=== PATIENT | female | born 2000 | race Hispanic/Latino ===

== ENCOUNTER 2019-05-24 13:04 | Emergency (ER) | payer OTHER, SELFPAY ==
[2019-05-24] MEDS ORDERED: BUPIVACAINE 0.5% PF 10 ML VIAL ONE (13:46)
[2019-05-24] MEDS ORDERED: LIDOCAINE 1% MPF 30 ML VIAL ONE (13:47)
--- NOTE | 2019-05-24 14:26 | ER ---
Nurse's Notes [facility] Name: May Rodas Age: 18 yrs Sex: Female : 2000 Arrival Date: 05/24/2019 Time: 13:06 Bed 15 Private MD: Diagnosis: Pilonidal cyst and sinus with abscess Presentation: 05/24 13:17 Presenting complaint: Patient states: "I have a boil on my butt and it hurts". aa5 Transition of care: patient was not received from another setting of care. Onset of symptoms was April 2019. Risk Assessment: Do you want to hurt yourself or someone else? Patient reports no desire to harm self or others. Initial Sepsis Screen: Does the patient meet any 2 criteria? No. Patient's initial sepsis screen is negative. Does the patient have a suspected source of infection? No. Patient's initial sepsis screen is negative. Care prior to arrival: None. 13:17 Acuity: MANSI 4 aa5 13:17 Method Of Arrival: Ambulatory aa5 Triage Assessment: 13:27 General: Appears Behavior is calm, cooperative, appropriate for age. Pain: Complains of tw2 pain in buttocks. 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 - Social history:: Smoking status: Patient/guardian denies using tobacco. - Ebola Screening: : No symptoms or risks identified at this time. Screenin:27 Abuse screen: Denies threats or abuse. Nutritional screening: No deficits noted. tw2 Tuberculosis screening: No symptoms or risk factors identified. Fall Risk None identified. Assessment: 13:25 General: Appears in no apparent distress. slender, well groomed, Behavior is calm, tw2 cooperative, appropriate for age. Pain: Complains of pain in gluteal cleft. Neuro: Level of Consciousness is awake, alert, obeys commands, Oriented to person, place, time, situation. Cardiovascular: Patient's skin is warm and dry. Respiratory: Airway is patent Respiratory effort is even, unlabored, Respiratory pattern is regular, symmetrical. GI: No signs and/or symptoms were reported involving the gastrointestinal system. : No signs and/or symptoms were reported regarding the genitourinary system. EENT: No signs and/or symptoms were reported regarding the EENT system. Derm: Abscess located on buttocks. 14:28 Reassessment: Patient appears in no apparent distress at this time. Patient and/or tw2 family updated on plan of care and expected duration. Pain level reassessed. Patient is alert, oriented x 3, equal unlabored respirations, skin warm/dry/pink. Patient states feeling better. Vital Signs: 13:18 BP 148 / 59; Pulse 108; Resp 18 S; Temp 99.4(O); Pulse Ox 100% on R/A; Weight 61.23 kg aa5 (R); Height 5 ft. 1 in. (154.94 cm) (R); Pain 9/10; 13:18 Body Mass Index 25.51 (61.23 kg, 154.94 cm) aa5 ED Course: 13:06 Patient arrived in ED. rg4 13:17 Triage completed. aa5 13:17 Arm band placed on. aa5 13:26 Veronica Carranza, RN is Primary Nurse. tw2 13:26 Chilo Veloz PA is PHCP. [facility] 13:26 Tanner Kaiser MD is Attending Physician. [facility] 13:26 Placed in gown. Bed in low position. Adult w/ patient. tw2 14:23 Assist provider with I \\T\\ D: of an abscess on pilonidal cyst Set up I\\T\\D tray. Performed tw 2 by Chilo LINDO Wound packed. Dressing with 4X4s, tape Patient tolerated well. 14:25 Ken Blancas MD is Referral Physician. [facility] 14:37 Patient did not have IV access during this emergency room visit. tw2 Administered Medications: 13:50 Drug: Marcaine (0.5 %) 10 ml {Note: by PA. Marco} Volume: 10 ml; Route: tw2 Infiltration; 13:50 Drug: Lidocaine (1 %) 5 ml {Note: by provider PA. Marco} Volume: 5 ml; Route: tw2 Infiltration; Outcome: 14:25 Discharge ordered by . [facility] 14:36 Discharged to home ambulatory, with family. tw2 14:36 Condition: stable 14:36 Discharge instructions given to patient, family, Instructed on discharge instructions, follow up and referral plans. no drinking with medication, no driving heavy equipment, medication usage, wound care, Demonstrated understanding of instructions, follow-up care, medications, wound care, Prescriptions given X 2. 14:47 Patient left the ED. tw2 Signatures: Chilo Veloz PA PA jmm Calderon, Audri, RN RN aa5 Veronica Carranza RN RN tw2 Marlene Johnson 4
--- NOTE | 2019-05-24 14:27 | EDPHYS ---
Physician Documentation [facility] Name: May Rodas Age: 18 yrs Sex: Female : 2000 Arrival Date: 05/24/2019 Time: 13:06 Bed 15 Private MD: ED Physician Tanner Kaiser HPI: 05/24 13:39 This 18 yrs old Female presents to ER via Ambulatory with complaints of Boil, jmm Fever. 13:39 The patient presents with an abscess of the gluteal cleft. Onset: The symptoms/episode jmm began/occurred gradually, 1 week(s) ago. Possible cause(s): unknown. Associated signs and symptoms: Pertinent positives: fever, swelling. This is a 18 year old female with no chronic medical conditions that presents to the ED with complaints of buttock pain, fever, worsening last night. . [employer]: 13:18 LMP 05/21/2019 aa5 Historical: - Allergies: 13:17 No Known Allergies; aa5 - PMHx: 13:17 None; aa5 - PSHx: 13:17 None; aa5 - Immunization history:: Last tetanus immunization: unknown. - Social history:: Smoking status: Patient/guardian denies using tobacco. - Ebola Screening: : No symptoms or risks identified at this time. ROS: 13:39 Respiratory: Negative for shortness of breath, cough, wheezing, and pleuritic chest jmm pain, Abdomen/GI: Negative for abdominal pain, nausea, vomiting, diarrhea, and constipation. 13:39 Constitutional: Positive for fever. 13:39 Skin: Positive for swelling. 13:39 All other systems are negative. Exam: 13:39 Constitutional: This is a well developed, well nourished patient who is awake, alert, jmm and in no acute distress. Head/Face: atraumatic. Eyes: EOMI, no conjunctival erythema appreciated ENT: Moist Mucus Membranes Neck: Trachea midline, Supple Chest/axilla: Normal chest wall appearance and motion. Cardiovascular: Regular rate and rhythm. No edema appreciated Respiratory: Normal respirations, no respiratory distress appreciated Abdomen/GI: Non distended, soft Back: Normal ROM 13:39 Skin: swelling and induration noted to the superior gluteal cleft, more induration is appreciated on the left side. 13:39 Neuro: Orientation: is normal, Mentation: is normal, Memory: is normal. 13:39 Psych: Behavior/mood is pleasant, cooperative. Vital Signs: 13:18 BP 148 / 59; Pulse 108; Resp 18 S; Temp 99.4(O); Pulse Ox 100% on R/A; Weight 61.23 kg aa5 (R); Height 5 ft. 1 in. (154.94 cm) (R); Pain 9/10; 13:18 Body Mass Index 25.51 (61.23 kg, 154.94 cm) aa5 Procedures: 14:23 I \T\ D: Incision and drainage was performed for an abscess of the pilonidal cyst Prepped [facility] with Betadine, Anesthetized with 10 ml's 1% Lidocaine. Incised with #11 blade. Drained large amount purulent fluid. Loculations removed. Abscess cavity explored. Packed with iodoform gauze, Dressing: sterile 4x4 gauze, the patient tolerated the procedure well. MDM: 13:39 Patient medically screened. [facility] 14:23 Data reviewed: vital signs, nurses notes. Counseling: I had a detailed discussion with [facility] the patient and/or guardian regarding: the historical points, exam findings, and any diagnostic results supporting the discharge/admit diagnosis, the need for outpatient follow up, to return to the emergency department if symptoms worsen or persist or if there are any questions or concerns that arise at home. ED course: Patient is alert and non toxic in appearance in the ED. Patient is advised to follow up with gen surgery and otherwise given strict return precautions. Patient understood and agrees with the plan of care. . 05/24 13:54 Order name: I\T\D Setup; Complete Time: 13:56 tw2 Administered Medications: 13:50 Drug: Marcaine (0.5 %) 10 ml {Note: by PA. Marco} Volume: 10 ml; Route: tw2 Infiltration; 13:50 Drug: Lidocaine (1 %) 5 ml {Note: by provider PA. Marco} Volume: 5 ml; Route: tw2 Infiltration; Disposition: 05/25 06:43 Co-signature as Attending Physician, Tanner Kaiser MD I agree with the assessment and tw4 plan of care. Disposition: 05/24/19 14:25 Discharged to Home. Impression: Pilonidal cyst and sinus with abscess. - Condition is Stable. - Discharge Instructions: Incision and Drainage of a Pilonidal Cyst, Care After, Incision and Drainage of a Pilonidal Cyst. - Prescriptions for Clindamycin HCl 300 mg Oral Capsule - take 1 capsule by ORAL route every 6 hours for 10 days; 40 capsule. Tylenol- Codeine #3 300-30 mg Oral Tablet - take 1 tablet by ORAL route every 6 hours As needed; 12 tablet. - Work release form, Medication Reconciliation Form, Thank You Letter, Antibiotic Education, Prescription Opioid Use form. - Follow up: Ken Blancas MD; When: 2 - 3 days; Reason: Recheck today's complaints, Continuance of care, Re-evaluation by your physician. Signatures: Chilo Veloz PA PA jmm Calderon, Audri, RN RN aa5 Veronica Carranza RN RN tw2 Tanner Kaiser MD MD tw4 Corrections: (The following items were deleted from the chart) 05/24 14:47 14:25 05/24/2019 14:25 Discharged to Home. Impression: Pilonidal cyst and sinus with tw2 abscess. Condition is Stable. Forms are Medication Reconciliation Form, Thank You Letter, Antibiotic Education, Prescription Opioid Use. Follow up: Ken Blancas; When: 2 - 3 days; Reason: Recheck today's complaints, Continuance of care, Re-evaluation by your physician. [email or web address]
[2019-05-24 14:58] VITALS: BP 148/59; TEMP 99.4; O2SAT 100
== END 2019-05-24 14:47 | disposition home or self-care (01) ==
LOC: ER 13:04
PROC: 0H98XZZ Drainage of Buttock Skin, External Approach (ICD-10-PCS; principal; 2019-05-24)
DX: L05.01 Pilonidal cyst with abscess (principal)
CPT/HCPCS: 99283